=== PATIENT | male | born 1975 | race Caucasian/White ===

== ENCOUNTER 2017-12-25 15:45 | Emergency (ER) | payer SELFPAY ==
[~2017-12-25] VITALS: Ht 162.6 cm; Wt 64.0 kg
[2017-12-25] MEDS ORDERED: ONDANSETRON HCL 4MG/2ML VIAL IV STA (16:56)
[2017-12-25] MEDS ORDERED: SODIUM CHLORIDE 0.9% 1,000 ML IV ONE (16:56)
[2017-12-25] MEDS ORDERED: LEVETIRACETAM 500MG PREMIX 100 ML IV ONE (17:00)
[2017-12-25] MEDS ORDERED: LORAZEPAM 2MG/ML CPJ IV ONE (17:00)
[2017-12-25 17:21] LABS: CHLORIDE 104 mEq/L (98-107)
[2017-12-25 17:25] LABS: ETHANOL BLOOD < 10 mg/dL
[2017-12-25 17:30] LABS: CREATINE KINASE 509 IU/L (39-308); INR 1.3; PROTHROMBIN TIME 13.8 sec (9.4-11.6)
[2017-12-25 17:35] LABS: CARBAMAZEPINE < 0.5 ug/mL (4-12); PHENOBARBITAL < 2.1 ug/mL (15.0-40.0); VALPROIC ACID < 3.0 ug/mL (50-100)
[2017-12-25 17:38] LABS: BASOPHILS % 1.5 % (0.0-2.0); EOSINOPHILS % 0.1 % (0.0-5.0); HEMATOCRIT. 27.3 % (42.0-52.0); HEMOGLOBIN. 8.9 g/dL (14.0-18.0); LYMPHOCYTES % 24.1 % (20.0-50.0); MEAN CORPUSCULAR HEMOGLOBIN 26.4 pg (28.0-32.0); MEAN CORPUSCULAR VOLUME 80.9 fL (80.0-94.0); MEAN PLATELET VOLUME 8.1 fl (7.4-10.4); MONOCYTES % 8.9 % (2.0-8.0); NEUTROPHILS % 65.4 % (40.0-76.0); PLATELET 115 x1000/uL (130-400); RED BLOOD CELL COUNT 3.38 mill/uL (4.7-6.1); RED CELL DISTRIBUTION WIDTH 18.2 % (11.6-14.6)
[2017-12-25 23:14] VITALS: BP 136/71
== END 2017-12-26 00:12 | disposition home or self-care (01) ==
LOC: ER 16:14
DX: G40.909 Epilepsy, unspecified, not intractable, without status epilepticus (principal); E86.0 Dehydration; M62.82 Rhabdomyolysis; D64.9 Anemia, unspecified; I10 Essential (primary) hypertension
CPT/HCPCS: 36415; 70450; 71045; 80053; 80156; 80165; 80184; 80185; 82550; 84443; 84484; 85025; 85610; 93005; 96365; 96375; 99285; G0482; J1953; J2060; J2405; J7030; Z7610